=== PATIENT | male | born 1930 | race Caucasian/White ===

== ENCOUNTER 2018-03-01 07:06 | Day surgery (SDC) | payer OTHER ==
[2018-03-01] MEDS ORDERED: NA CHLORIDE 0.9% 250 ML ONE ×2 (08:00→11:49)
[2018-03-01] MEDS ORDERED: FUROSEMIDE 20 MG/ 2ML VIAL IV ONE (08:15)
[2018-03-01 09:52] VITALS: BMI 20.5
[2018-03-01 16:03] VITALS: BP 108/52; TEMP 97.2; O2SAT 99
[2018-03-01 16:35] LABS: Hematocrit 25.9 % (39.6-49.0)
== END 2018-03-01 16:04 | disposition home or self-care (01) ==
LOC: DS 07:06
PROVIDERS: ATTEND Internal Medicine Hematology & Oncology
DX: C91.10 Chronic lymphocytic leukemia of B-cell type not having achieved remission (principal); D63.8 Anemia in other chronic diseases classified elsewhere
CPT/HCPCS: 36415; 36430; 85014; 85018; 86850; 86900; 86901; J1940; P9016 ×2